=== PATIENT | female | born 1995 | race Caucasian/White ===

== ENCOUNTER 2018-08-29 08:43 | Inpatient (IN) | payer OTHER ==
[~2018-08-29] VITALS: Ht 152.4 cm; Wt 62.4 kg
[2018-08-29 08:47] VITALS: Ht 152.4 cm; Wt 62.4 kg
[2018-08-29 10:46] LABS: BASOPHIL % 0.3 % (0-2)
[2018-08-29 11:09] LABS: PLATELET COUNT 445 x10^3mcL (130-400); RED CELL DISTRIBUTION WIDTH 18.7 % (11.5-14.5)
[2018-08-29 11:30] LABS: CALCIUM 8.5 mg/dL (8.5-10.1); CARBON DIOXIDE 26.1 mmol/L (21-32); CHLORIDE SERUM 104 mmol/L (98-107); CREATININE SERUM 0.6 mg/dL (0.6-1.0); GFR1 > 60 mL/min; GLUCOSE SERUM 104 mg/dL (74-106); POTASSIUM SERUM 4.4 mmol/L (3.5-5.1); SODIUM SERUM 137 mmol/L (136-145)
[2018-08-29 11:34] LABS: ALBUMIN 3.7 g/dL (3.4-5.0); ALKALINE PHOSPHATASE 84 U/L (46-116); ALT/SGPT 44 U/L (14-59); AST/SGOT 22 U/L (15-37); BILIRUBIN TOTAL 0.9 mg/dL (0.20-1.00); TOTAL PROTEIN, SERUM 7.7 g/dL (6.4-8.2); rbc morphology (normal/abnorm) ABNORMAL (NORMAL)
[2018-08-29 14:08] VITALS: BP 101/60
[2018-08-29 16:39] VITALS: BP 103/52
[2018-08-29 18:00] VITALS: BP 101/84
[2018-08-29 20:08] VITALS: BP 102/50
[2018-08-29 21:25] VITALS: BP 105/62
[2018-08-30 05:51] VITALS: BP 112/51
[2018-08-30 06:24] LABS: BASOPHIL % 0.7 % (0-2); PLATELET COUNT 356 x10^3mcL (130-400)
[2018-08-30 06:39] LABS: CALCIUM 8.4 mg/dL (8.5-10.1); CARBON DIOXIDE 25.4 mmol/L (21-32); CHLORIDE SERUM 106 mmol/L (98-107); CREATININE SERUM 0.6 mg/dL (0.6-1.0); GFR1 > 60 mL/min; GLUCOSE SERUM 96 mg/dL (74-106); POTASSIUM SERUM 4.1 mmol/L (3.5-5.1); SODIUM SERUM 140 mmol/L (136-145)
[2018-08-30 08:12] LABS: RED CELL DISTRIBUTION WIDTH 24.6 % (11.5-14.5)
[2018-08-30 09:10] VITALS: BP 113/56
[2018-08-30 10:00] LABS: ovalocyte/elliptocyte 1+; rbc morphology (normal/abnorm) ABNORMAL (NORMAL)
[2018-08-30 17:08] VITALS: BP 97/50
[2018-08-30 20:49] VITALS: BP 114/57
[2018-08-31 06:20] VITALS: BP 106/53
[2018-08-31 06:44] LABS: CALCIUM 9.1 mg/dL (8.5-10.1); CARBON DIOXIDE 22.7 mmol/L (21-32); CHLORIDE SERUM 106 mmol/L (98-107); CREATININE SERUM 0.6 mg/dL (0.6-1.0); GFR1 > 60 mL/min; GLUCOSE SERUM 91 mg/dL (74-106); MAGNESIUM 1.9 mg/dL (1.8-2.4); POTASSIUM SERUM 4.2 mmol/L (3.5-5.1); SODIUM SERUM 139 mmol/L (136-145)
[2018-08-31 07:21] LABS: BASOPHIL % 0.6 % (0-2)
[2018-08-31 07:22] LABS: RED CELL DISTRIBUTION WIDTH 25.4 % (11.5-14.5)
[2018-08-31 07:29] LABS: PLATELET COUNT 298 x10^3mcL (130-400)
[2018-08-31 09:45] VITALS: BP 100/55
[2018-08-31] MEDS ORDERED: FERROUS SULFAT325 M2 PO (13:00)
[2018-08-31] MEDS ORDERED: COLACE100 MG PO (13:01)
[2018-08-31 13:37] VITALS: BP 100/55
== END 2018-08-31 14:00 | disposition home or self-care (01) | DRG 532 ==
LOC: ED 08:43 → MU 12:14
PROVIDERS: Emergency Medicine; ADMIT Internal Medicine Pulmonary Disease
PROC: 30233N1 Transfusion of Nonautologous Red Blood Cells into Peripheral Vein, Percutaneous Approach (ICD-10-PCS; principal; 2018-08-29)
DX: N92.0 Excessive and frequent menstruation with regular cycle (principal); D64.9 Anemia, unspecified; J45.909 Unspecified asthma, uncomplicated; F17.210 Nicotine dependence, cigarettes, uncomplicated
CPT/HCPCS: J1050; J2405; J7030; J7040; P9016